=== PATIENT | female | born 1990 | race Caucasian/White ===

== ENCOUNTER 2022-08-19 06:56 | Day surgery (SDC) | payer BC ==
[2022-08-19] MEDS ORDERED: Celecoxib 200 MG Cap PO ONE (07:00)
[2022-08-19] MEDS ORDERED: Acetaminophen 500 MG Tab PO ONE (07:00)
[2022-08-19] MEDS ORDERED: Indocyanine Green 25 MG SDV INJECT ONE (07:08)
[2022-08-19] MEDS ORDERED: Dextrose 5%-Lactated Ringers 1,000 ML IV SCH (07:30)
[2022-08-19] MEDS ORDERED: Scopolamine 1.5 MG Transdermal Patch TOP ONE (07:30)
[2022-08-19] MEDS ORDERED: cefOXitin 2 GM in Sodium Chloride 0.9% 50 ML IV ONE (07:30)
[2022-08-19] MEDS ORDERED: Rocuronium 50 MG/5 ML Vial ONE (08:20)
[2022-08-19] MEDS ORDERED: Succinylcholine 200 MG/10 ML MDV ONE (08:20)
[2022-08-19] MEDS ORDERED: Glycopyrrolate 0.2 MG/ML 5 ML MDV ONE (08:20)
[2022-08-19] MEDS ORDERED: Propofol 200 MG/20 ML SDV ONE (08:20)
[2022-08-19] MEDS ORDERED: Dexamethasone 4 MG/ML SDV ONE (08:20)
[2022-08-19] MEDS ORDERED: Neostigmine Methylsulfate 1 MG/ML 5 ML Syringe ONE (08:20)
[2022-08-19] MEDS ORDERED: fentaNYL 250 MCG/5 ML SDV ONE (08:20)
[2022-08-19] MEDS ORDERED: Ondansetron 4 MG/2 ML SDV ONE (08:20)
[2022-08-19] MEDS ORDERED: Ketamine 19 MG in Sodium Chloride 0.9% 19.81 ML IV SCH (08:30)
[2022-08-19] MEDS ORDERED: Ketamine 500 MG/5 ML MDV IV SCH (08:30)
[2022-08-19] MEDS: Bupivacaine 0.5%/EPINEPHrine 1:200,000 50 ML MDV ONE ×2 (12:38→13:15)
[2022-08-19] MEDS: Lidocaine 1% 50 ML MDV ONE ×2 (12:38→13:15)
[2022-08-19] MEDS ORDERED: fentaNYL 100 MCG/2 ML SDV ONE (13:20)
[2022-08-19] MEDS ORDERED: Acetaminophen 500 MG Tab PO PRN (14:37)
== END 2022-08-19 15:13 | disposition home or self-care (01) ==
LOC: JP.SDS 06:56
PROVIDERS: ATTEND Surgery
DX: K80.10 Calculus of gallbladder with chronic cholecystitis without obstruction (principal); K82.8 Other specified diseases of gallbladder; F41.9 Anxiety disorder, unspecified; F32.A Depression, unspecified; E66.9 Obesity, unspecified; G43.909 Migraine, unspecified, not intractable, without status migrainosus; I25.10 Atherosclerotic heart disease of native coronary artery without angina pectoris; Z68.39 Body mass index [BMI] 39.0-39.9, adult; Z79.899 Other long term (current) drug therapy; Z98.890 Other specified postprocedural states; Z68.38 Body mass index [BMI] 38.0-38.9, adult; Z98.84 Bariatric surgery status
CPT/HCPCS: 81025; 88304; A9270-GY; J0171; J0330; J0694; J1100; J2001; J2405; J2704; J2710; J2795; J3010; J3490; J7121